=== PATIENT | female | born 1960 | race Caucasian/White ===

== ENCOUNTER 2016-11-03 20:45 | Emergency (ER) | payer OTHER ==
[2016-11-03 21:16] VITALS: BP 155/73; PULSE 82; TEMP 98.1; BMI 66.0
--- NOTE | 2016-11-03 21:21 | PDOC ---
History of Present Illness - General History Source: Patient Exam Limitations: No Limitations <Sue Trveino - Last Filed: 11/03/16 21:36> - General History Source: Patient Exam Limitations: No Limitations <Dmitry Centeon I - Last Filed: 11/03/16 22:00> - General Chief Complaint: Pain, Acute Stated Complaint: RIGHT UPPER CHEST PAIN SINCE YESTERDAY Time Seen by Provider: 11/03/16 20:54 - History of Present Illness Initial Comments: 11/03/16 21:35 The patient is a 56 year old female, with significant past medical history of a double mastectomy (10 years ago), CAD s/p stents, HLD, HTN, morbid obesity, DM, and anxiety, who presents today complaining of 1 day of chest pain. The patient states that she felt like there was a pop in her chest yesterday afternoon and has been feeling pain ever since. She states that the pain radiates to the back is exacerbated upon movements of the arms, and coughing. Denies any trauma. Denies fever, chills, nausea, vomiting. Allergies: amoxicillin, epinephrine, erythromycin, ofloxacin, trimethobenzamide ROS General: No fevers or chills, no weakness, no weight loss HEENT: No change in vision. No sore throat,. No ear pain CardioVascular: Yes: chest pain. No shortness of breath Respiratory: Yes: cough. No wheezing. Gastrointestinal: no nausea, vomiting, diarrhea or constipation, No rectal bleeding Genitourinary: No dysuria, hematuria, or frequency Musculoskeletal: No joint or muscle pain or swelling Neurologic: No headache, vertigo, dizziness or loss of consciousness Psychiatric: nor depression Skin: No rashes or easy bruising Endocrine: no increased thirst or abnormal weight change Allergic: no skin or latex allergy All other systems reviewed and normal Adult Exam: General: Well-nourished well-developed individual, no acute distress HEENT: Throat: Normal, tonsils normal, no erythema or exudate Neck: Supple, no meningeal signs, no lymphadenopathy Eyes::Pupils equal reactive and round, extraocular motion intact Chest: The pain is reproducible upon palpation of the lower right chest area. Pain localizes to the area of her mastectomy scar.There is palpable scar tissue in the area that is tender. The ribs are also tender. No ecchymosis, erythema or increased warmth to the area. There is decreased range of motion of her arm secondary to pain when she is using the muscles overlying the area. Cardiac: S1-S2 normal, regular rate and rhythm, no murmurs rubs or gallops Respiratory: Lungs clear to auscultation bilateral Extremities: Warm, dry, no cyanosis, clubbing, or edema Skin: No rashes Neuro: Alert and oriented x3, nonfocal exam, grossly intact, normal gait Psych: Normal mood and affect (Alia Trevinoica) 11/03/16 21:54 A portion of this note was documented by scribe services under my direction. I have reviewed the details of the note, within reason, and agree with the documentation. The case summary and management plan written by me. Assessment and plan: This is a 56-year-old female who comes in complaining of right-sided chest wall pain secondary to feeling a pop in the area of the pain. Patient said she wasn't doing anything unusual, no unusual physical activity. Patient said she has been coughing a lot and thinks she may have been coughing. Patient denies any upper respiratory tract symptoms other than the coughing. On exam pain is localized to the mastectomy scar and there is palpable tenderness of the scar tissue in that area. A chest x-ray was done says she did give me the history of coughing make sure there was no underlying rib fracture. Chest x-ray was negative for any acute fractures or chest pathology Patient given Toradol with improvement in her symptoms Patient given prescription for naproxen, and a sling. She also was given 10 Percocets that she can take at night if she is having a hard time sleeping. Patient discharged home will follow-up with her primary care doctor. ( Dmitry Centeno I) Past History <Sue Trevino - Last Filed: 11/03/16 21:36> - Past Medical History Cancer: Yes (BILATERAL BREAST CA) Cardiac Disorders: Yes (CARDIAC STENTS) Diabetes: Yes HTN: Yes Hypercholesterolemia: Yes Psychiatric Problems: Yes (ANXIETY) Thyroid Disease: Yes (HYPO) - Surgical History Abdominal Surgery: Yes (HYSTERECTOMY) Cardiac Surgery: Yes (CARDIAC STENTS) - Psycho/Social/Smoking Cessation Hx Anxiety: Yes Suicidal Ideation: No Smoking Status: Yes Smoking History: Current every day smoker Have you smoked in the past 12 months: Yes Number of Cigarettes Smoked Daily: 20 Information on smoking cessation initiated: Yes 'Breaking Loose' booklet given: 11/18/14 Hx Alcohol Use: No Drug/Substance Use Hx: No Substance Use Type: None <Dmitry Centeno I - Last Filed: 11/03/16 22:00> - Past Medical History Allergies/Adverse Reactions: Allergies Allergy/AdvReac Type Severity Reaction Status Date / Time amoxicillin [Amoxicillin] Allergy Hives Verified 12/10/15 16:34 epinephrine Allergy Difficulty Verified 12/10/15 16:34 Breathing erythromycin base Allergy Hives Verified 12/10/15 16:34 [Erythromycin Base] ofloxacin [From Floxin] Allergy Hives Verified 12/10/15 16:34 trimethobenzamide HCl Allergy Swelling Verified 12/10/15 16:34 [From Tigan] Home Medications: Ambulatory Orders Alprazolam [Xanax] 0.5 mg PO HS 08/10/12 Clopidogrel Bisulfate [Plavix -] 75 mg PO DAILY 08/10/12 Nebivolol HCl [Bystolic] 5 mg PO DAILY 08/10/12 Bupropion HCl [Wellbutrin Xl -] 300 mg PO HS 06/13/13 Escitalopram Oxalate [Lexapro -] 30 mg PO HS 06/13/13 Levothyroxine [Synthroid -] 100 mcg PO DAILY 06/13/13 Insulin Aspart Prot/Insuln Asp [Novolog Mix 70-30 Flexpen Syrn] 50 unit SQ BID 11/18/14 Oxycodone HCl/Acetaminophen [Endocet 5-325 Tablet] 2 each PO DAILY PRN 11/18/14 Atorvastatin Ca [Lipitor] 40 mg PO HS 11/03/16 Naproxen [Naprosyn -] 500 mg PO BID #14 tablet 11/03/16 Oxycodone HCl/Acetaminophen [Percocet 5-325 mg Tablet] 1 tab PO Q6H #10 tablet MDD 4 11/03/16 - Vital Signs Last Vital Signs Temp Pulse Resp BP Pulse Ox 98.1 F 82 18 155/73 100 11/03/16 20:50 11/03/16 20:50 11/03/16 20:50 11/03/16 20:50 11/03/16 20:50 - ADDITIONAL ORDERS Additional order review: Laboratory Results 11/03/16 21:20 Urine Color Yellow Urine Appearance Clear Urine pH 5.5 Ur Specific [place] >= 1.030 H Urine Protein Negative Urine Glucose (UA) Trace Urine Ketones Trace Urine Blood Negative Urine Nitrite Negative Urine Bilirubin Negative Urine Urobilinogen 0.2 e.u/dl Ur Leukocyte Esterase Negative - RADIOLOGY Radiology Studies Ordered: Category Date Time Status CHEST PA & LAT [RAD] Stat Radiology 11/03/16 21:26 Ordered RIBS RIGHT SIDE [RAD] Stat Radiology 11/03/16 21:26 Ordered - Medications Given in the ED: ED Medications Discontinued Medications Generic Name Dose Route Start Last Admin Trade Name Freq PRN Reason Stop Dose Admin Ketorolac Tromethamine 60 mg 11/03/16 21:26 11/03/16 21:32 Toradol Injection - IM 11/03/16 21:27 60 mg ONCE ONE Administration *DC/Admit/Observation/Transfer <Sue Trevino - Last Filed: 11/03/16 21:36> - Discharge Dispostion Admit: No <Dmitry Centeno I - Last Filed: 11/03/16 22:00> Diagnosis at time of Disposition: Right-sided chest wall pain - Discharge Dispostion Disposition: HOME Condition at time of disposition: Good - Patient Instructions Additional Instructions: For the pain during the day take naproxen 1 tablet twice a day with food don't take on an empty stomach. At nighttime if you're having a hard time sleeping because of the pain you can take Percocet one tablet as often as every 6 hours. The Percocet will make you constipated and drowsy so try to limit it to the nighttime hours Return to the emergency department immediately with ANY new, persistent or worsening symptoms. Continue any medications as previously prescribed by your physician. You should follow up with your primary doctor as soon as possible regarding today's emergency department visit. . Please make sure your doctor reviews the results of your emergency evaluation. Thank you for coming to the Emergency Department today for your care. It was a pleasure to see you today. Please note that your evaluation is INCOMPLETE until you follow-up with your doctor. - Attestations Scribe Attestion: 11/03/16 21:35 Documentation prepared by KIRTI Freedman, acting as senior medical director for Dmitry Centeno MD. (Lexio,Sue)
[2016-11-03] MEDS ORDERED: KETOROLAC TROMETHAMINE 60 MG/2 ML VIAL IM ONE (21:26)
[2016-11-03] MEDS ORDERED: KETOROLAC TROMETHAMINE 60 MG/2 ML VIAL ONE (21:29)
[2016-11-03 21:31] LABS: PH,URINE 5.5 (4.5-8); URINE APPEARANCE Clear; URINE BILIRUBIN Negative (NEGATIVE); URINE BLOOD Negative (NEGATIVE); URINE COLOR YELLOW; URINE GLUCOSE (UA) Trace (NEGATIVE); URINE KETONE Trace (NEGATIVE); URINE LEUK ESTERASE Negative (NEGATIVE); URINE NITRITE Negative (NEGATIVE); URINE PROTEIN Negative (NEGATIVE); URINE UROBILINOGEN 0.2 E.U/dl (0.2-1.0)
--- NOTE | 2016-11-04 12:53 | EKG ---
Test Reason : Blood Pressure : / mmHG Vent. Rate : 081 BPM Atrial Rate : 081 BPM P-R Int : 168 ms QRS Dur : 088 ms QT Int : 358 ms P-R-T Axes : 067 032 058 degrees QTc Int : 415 ms NORMAL SINUS RHYTHM POSSIBLE LEFT ATRIAL ENLARGEMENT NO PREVIOUS ECGS AVAILABLE Confirmed by MD CHON, ADAM ([id number]) on 11/04/2016 12:52:58 PM Referred By: MICHAEL Confirmed By:ADAM GIVENS MD
== END 2016-11-03 22:04 | disposition home or self-care (01) ==
LOC: FER 20:45
PROC: 3E0233Z Introduction of Anti-inflammatory into Muscle, Percutaneous Approach (ICD-10-PCS; principal; 2016-11-03)
DX: R07.89 Other chest pain (principal); Z95.5 Presence of coronary angioplasty implant and graft; I25.10 Atherosclerotic heart disease of native coronary artery without angina pectoris; E11.9 Type 2 diabetes mellitus without complications; F41.9 Anxiety disorder, unspecified; I10 Essential (primary) hypertension; F17.210 Nicotine dependence, cigarettes, uncomplicated; Z85.3 Personal history of malignant neoplasm of breast
CPT/HCPCS: 71020-TC; 71101-TC-RT; 81003; 93005; 96372; 99282-25

== ENCOUNTER 2017-07-30 22:35 | Emergency (ER) | payer OTHER ==
[2017-07-30 22:40] VITALS: BP 128/63; PULSE 90; TEMP 97.9; BMI 40.3
[2017-07-30] MEDS ORDERED: AMOX TR/POT CLAV 875MG/125MG TABLETS (FP) PO ONE (22:55)
[2017-07-30] MEDS ORDERED: AMOX TR/POT CLAV 875MG/125MG TABLETS (FP) ONE ×2 (22:58→23:41)
[2017-07-30] MEDS ORDERED: DIPHTH,PERTUSS(ACELL),TET 0.5 ML DISP.SYRIN IM ONE (22:59)
--- NOTE | 2017-07-30 23:07 | PDOC ---
History of Present Illness - General Chief Complaint: Bite Stated Complaint: S/P CAT BITE TO L 2ND DIGIT Time Seen by Provider: 07/30/17 22:42 - History of Present Illness Initial Comments: 07/30/17 23:07 56 F with h/o CAD s/p stents, HLD, HTN, morbid obesity, DM, presenting to ER with pain and swelling to L 2nd digit after being bitten by a cat 3 days ago. Pt states that [place] the [place] when it became startled and bit her on the finger. She states that it only bit her once. The cat is owned by someone she is familiar with at the park and pt reports that it has received all its vaccinations. She does not believe the cat was exhibiting any abnormal behavior. Pt denies F/C. Denies any injury anywhere else. Pt reports allergy to penicillin in the past but states that she only had mild hives as a child. Past History - Past Medical History Allergies/Adverse Reactions: Allergies Allergy/AdvReac Type Severity Reaction Status Date / Time amoxicillin [Amoxicillin] Allergy Hives Verified 12/10/15 16:34 epinephrine Allergy Difficulty Verified 12/10/15 16:34 Breathing erythromycin base Allergy Hives Verified 12/10/15 16:34 [Erythromycin Base] ofloxacin [From Floxin] Allergy Hives Verified 12/10/15 16:34 trimethobenzamide HCl Allergy Swelling Verified 12/10/15 16:34 [From Tigan] Home Medications: Ambulatory Orders Alprazolam [Xanax] 0.5 mg PO HS 08/10/12 Clopidogrel Bisulfate [Plavix -] 75 mg PO DAILY 08/10/12 Nebivolol HCl [Bystolic] 5 mg PO DAILY 08/10/12 Bupropion HCl [Wellbutrin Xl -] 300 mg PO HS 06/13/13 Escitalopram Oxalate [Lexapro -] 30 mg PO HS 06/13/13 Levothyroxine [Synthroid -] 100 mcg PO DAILY 06/13/13 Insulin Aspart Prot/Insuln Asp [Novolog Mix 70-30 Flexpen Syrn] 50 unit SQ BID 11/18/14 Oxycodone HCl/Acetaminophen [Endocet 5-325 Tablet] 2 each PO DAILY PRN 11/18/14 Atorvastatin Ca [Lipitor] 40 mg PO HS 11/03/16 Naproxen [Naprosyn -] 500 mg PO BID #14 tablet 11/03/16 Oxycodone HCl/Acetaminophen [Percocet 5-325 mg Tablet] 1 tab PO Q6H #10 tablet MDD 4 11/03/16 Amoxicillin/Potassium Clav [Augmentin 875-125 Tablet] 1 each PO BID #14 tablet 07/30/17 Cancer: Yes (BILATERAL BREAST CA) Cardiac Disorders: Yes (CARDIAC STENTS) COPD: No Diabetes: Yes HTN: Yes Hypercholesterolemia: Yes Psychiatric Problems: Yes (ANXIETY) Thyroid Disease: Yes (HYPO) - Surgical History Abdominal Surgery: Yes (HYSTERECTOMY) Cardiac Surgery: Yes (CARDIAC STENTS) - Suicide/Smoking/Psychosocial Hx Smoking Status: Yes Smoking History: Unknown if ever smoked Have you smoked in the past 12 months: No Number of Cigarettes Smoked Daily: 0 Information on smoking cessation initiated: No 'Breaking Loose' booklet given: 11/18/14 Hx Alcohol Use: No Drug/Substance Use Hx: No Substance Use Type: None Review of Systems - Review of Systems Comments:: 07/30/17 23:15 "GENERAL/CONSTITUTIONAL: No fever or chills. No weakness. HEAD, EYES, EARS, NOSE AND THROAT: No change in vision. No ear pain or discharge. No sore throat. CARDIOVASCULAR: No chest pain or shortness of breath. RESPIRATORY: No cough, wheezing, or hemoptysis. GASTROINTESTINAL: No nausea, vomiting, diarrhea or constipation. GENITOURINARY: No dysuria, frequency, or change in urination. MUSCULOSKELETAL: L 2nd digit swelling and pain SKIN: No rash NEUROLOGIC: No headache, vertigo, loss of consciousness, or change in strength/ sensation. ENDOCRINE: No increased thirst. No abnormal weight change. HEMATOLOGIC/LYMPHATIC: No anemia, easy bleeding, or history of blood clots. ALLERGIC/IMMUNOLOGIC: No hives or skin allergy. " *Physical Exam - Vital Signs Last Vital Signs Temp Pulse Resp BP Pulse Ox 97.9 F 90 14 128/63 98 07/30/17 22:37 07/30/17 22:37 07/30/17 22:37 07/30/17 22:37 07/30/17 22:37 - Physical Exam Comments: 07/30/17 23:15 "GENERAL: Awake, alert, and fully oriented, in no acute distress HEAD: No signs of trauma EYES: PERRLA, EOMI, sclera anicteric, conjunctiva clear ENT: Auricles normal inspection, hearing grossly normal, nares patent, oropharynx clear without exudates. Moist mucosa NECK: Nontender, no stepoffs, Normal ROM, supple, no lymphadenopathy, JVD, or masses LUNGS: Breath sounds equal, clear to auscultation bilaterally. No wheezes, and no crackles HEART: Regular rate and rhythm, normal S1 and S2, no murmurs, rubs or gallops ABDOMEN: Soft, nontender, normoactive bowel sounds. No guarding, no rebound. No masses EXTREMITIES: L 2nd digit with 2 small puncture wounds, now well healed, mild swelling with no erythema, no sausage digit, no pain with passive flexion or extension, no tenderness over flexor or extensor tendons NEUROLOGICAL: Cranial nerves II through XII intact. 5/5 strength and sensation in all extremities, Normal speech, normal gait SKIN: Warm, Dry, normal turgor, no rashes or lesions noted. " ED Treatment Course - Medications Given in the ED: ED Medications Discontinued Medications Generic Name Dose Route Start Last Admin Trade Name Gio PRN Reason Stop Dose Admin Amoxicillin/Clavulanate Potassium 1 tab 07/30/17 22:55 07/30/17 22:57 Augmentin - 875mg Tablet PO 07/30/17 22:56 1 tab ONCE ONE Administration Medical Decision Making - Medical Decision Making 07/30/17 23:16 56 F with cellulitis of L index finger s/p cat bite. Will initiate augmentin. No indication for rabies PEP at this time, as cat is domestic with all vaccinations up to date and bite was provoked. No evidence of deep tissue infection or systemic infection. No signs of tenosynovitis. - Augmentin - Tdap - F/u hand specialist 07/30/17 23:40 Pt given augmentin and watched for 45 minutes without any adverse reaction. Prescription sent to pharmacy. Pt instructed to f/u with hand surgeon. I discussed the physical exam findings, ancillary test results and final diagnoses with the patient. I answered all of the patient's questions. The patient was satisfied with the care received and felt comfortable with the discharge plan and treatment plan. The patient agrees to follow up with the primary care physician within 24-72 hours. *DC/Admit/Observation/Transfer Diagnosis at time of Disposition: Cat bite - Discharge Dispostion Disposition: HOME Condition at time of disposition: Good - Prescriptions Prescriptions: Amoxicillin/Potassium Clav [Augmentin 875-125 Tablet] 1 each PO BID #14 tablet - Referrals Referrals: Edgar Knight MD [Staff Physician] - - Patient Instructions Printed Discharge Instructions: DI for Animal Bites Additional Instructions: Take the antibiotics as prescribed. If you experience worsening pain, swelling, fevers, redness, or any other concerning symptoms, return to the ER immediately. Otherwise, follow up with a hand specialist within 1 week for a re-evaluation. Call the number provided to make an appointment. - Post Discharge Activity - Attestations Physician Attestion: 07/30/17 23:19 I, Dr. Edgar Valadez MD, attest that this document has been prepared under my direction and personally reviewed by me in its entirety. I further attest, that it accurately reflects all work, treatment, procedures and medical decision -making performed by me.
[2017-07-30] MEDS ORDERED: KETOROLAC TROMETHAMINE 15 MG/ML VIAL IM ONE (23:18)
[2017-07-30] MEDS ORDERED: KETOROLAC TROMETHAMINE 15 MG/ML VIAL ONE (23:19)
== END 2017-07-30 23:44 | disposition home or self-care (01) ==
LOC: FER 22:35
PROC: 3E0234Z Introduction of Serum, Toxoid and Vaccine into Muscle, Percutaneous Approach (ICD-10-PCS; principal; 2017-07-30)
PROC: 3E0233Z Introduction of Anti-inflammatory into Muscle, Percutaneous Approach (ICD-10-PCS; 2017-07-30)
DX: S61.251A Open bite of left index finger without damage to nail, initial encounter (principal); W55.01XA Bitten by cat, initial encounter; Y93.89 Activity, other specified; Y92.830 Public park as the place of occurrence of the external cause
CPT/HCPCS: 90715; 99282-25

== ENCOUNTER 2018-10-28 17:53 | Emergency (ER) | payer OTHER ==
--- NOTE | 2018-10-28 17:58 | PDOC ---
Attending Attestation - Resident Resident Name: Yury Ibarra - ED Attending Attestation I have performed the following: I have examined & evaluated the patient, The case was reviewed & discussed with the resident, I agree w/resident's findings & plan, Exceptions are as noted
[2018-10-28 18:05] VITALS: BP 160/84; PULSE 86; TEMP 99.1; BMI 30.1
--- NOTE | 2018-10-28 18:21 | PDOC ---
History of Present Illness - General Chief Complaint: Injury Stated Complaint: FELL ON ICE INJURY RT HAND/WRIST,RT KNEE, LT HI Time Seen by Provider: 10/28/18 17:57 - History of Present Illness Initial Comments: 10/28/18 18:21 Chief complaint: Pain right wrist History of present illness: Patient slipped on the ice several hours [employer], injured her right wrist. Progressive pain and swelling. No distal numbness or tingling. Took one oxycodone after the injury Review of systems: Admits pain to the right shoulder, especially with movement. Pain to the right knee. Bumped her head but has no bruits or headache. No neck injury or neck pain. No visual or focal neurologic symptoms or unsteadiness of gait. No chest abdomen pelvis or spine injury or pain. Past medical history: Insulin-dependent diabetes for many years, controlled well. Coronary artery disease with cardiac stents. Anxiety. Depression. Hypothyroidism. Maintained on Plavix Social history: Denies tobacco alcohol or nonprescription drugs. Fully active and without disability. Stable home and family Family history: Positive for coronary artery disease and diabetes Physical exam: Alert and oriented well-developed well-nourished moderate distress due to pain in the right wrist and shoulder Afebrile, vital signs stable Head atraumatic. There is no evidence of contusion, hematoma, abrasion, laceration. PERRLA 3 mm, fundi benign with sharp disc margins and good central venous pulsations. ENT clear Neck without point tenderness or deformity. Full range of motion without pain Chest clear, full breath sounds bilaterally. No rib cage or chest wall deformity or tenderness CV S1 and S2 normal without murmur rub or gallop pulses full and symmetric no JVD or edema no bruits Abdomen soft nontender without mass or organomegaly. Nondistended. Bowel sounds normal. No CVAT Spine and pelvis without deformity or tenderness Neurological C2 to 12 intact. Strength full and symmetric. No focal sensory or motor deficits. Gait stable and unimpaired. Cerebellum intact Extremities: Right wrist with moderate swelling, tenderness over the distal radius, and mild deformity. Suggestive of wrist fracture Right shoulder: Limited range of motion 90 with pain. No deformity, swelling, erythema, heat, or point tenderness. Distal pulses full. No distal sensory or motor deficit deficits Right knee: Mild pain with extreme front flexion. No swelling, effusion, deformity, or ligamentous stress tenderness or laxity. Stool pulses full. No distal sensory or motor deficits. Impression: Probable right wrist fracture. Possible right humerus fracture. Minor knee strain. Probably no significant head injury but because of Plavix, this is a consideration Plan: X-rays of the right wrist and shoulder. Brain CT to rule out bleed. Symptomatic treatment and follow-up depending on results. Past History - Past Medical History Allergies/Adverse Reactions: Allergies Allergy/AdvReac Type Severity Reaction Status Date / Time amoxicillin [Amoxicillin] Allergy Hives Verified 10/28/18 17:57 epinephrine Allergy Difficulty Verified 10/28/18 17:57 Breathing erythromycin base Allergy Hives Verified 10/28/18 17:57 [Erythromycin Base] ofloxacin [From Floxin] Allergy Hives Verified 10/28/18 17:57 trimethobenzamide HCl Allergy Swelling Verified 10/28/18 17:57 [From Tigan] Home Medications: Ambulatory Orders Alprazolam [Xanax] 0.5 mg PO HS 08/10/12 Clopidogrel Bisulfate [Plavix -] 75 mg PO DAILY 08/10/12 Nebivolol HCl [Bystolic] 5 mg PO DAILY 08/10/12 Bupropion HCl [Wellbutrin Xl -] 300 mg PO HS 06/13/13 Escitalopram Oxalate [Lexapro -] 30 mg PO HS 06/13/13 Levothyroxine [Synthroid -] 75 mcg PO DAILY 06/13/13 Atorvastatin Ca [Lipitor] 80 mg PO HS 11/03/16 Cancer: Yes (BILATERAL BREAST CA) Cardiac Disorders: Yes (CARDIAC STENTS) COPD: No Diabetes: Yes HTN: Yes Hypercholesterolemia: Yes Psychiatric Problems: Yes (ANXIETY) Thyroid Disease: Yes (HYPO) - Surgical History Abdominal Surgery: Yes (HYSTERECTOMY) Cardiac Surgery: Yes (CARDIAC STENTS) - Suicide/Smoking/Psychosocial Hx Smoking Status: Yes Smoking History: Current every day smoker Have you smoked in the past 12 months: No Number of Cigarettes Smoked Daily: 20 Information on smoking cessation initiated: No 'Breaking Loose' booklet given: 11/18/14 Hx Alcohol Use: No Drug/Substance Use Hx: No Substance Use Type: None *Physical Exam - Vital Signs Last Vital Signs Temp Pulse Resp BP Pulse Ox 99.1 F 86 18 160/84 96 10/28/18 17:56 10/28/18 17:56 10/28/18 17:56 10/28/18 17:56 10/28/18 17:56 Moderate Sedation - Procedure Monitoring Vital Signs: Procedure Monitoring Vital Signs Temperature 99.1 F 10/28/18 17:56 Pulse Rate 86 10/28/18 17:56 Respiratory Rate 18 10/28/18 17:56 Blood Pressure 160/84 10/28/18 17:56 O2 Sat by Pulse Oximetry (%) 96 10/28/18 17:56 ED Treatment Course - RADIOLOGY Radiology Studies Ordered: Category Date Time Status SHOULDER-RIGHT [RAD] Stat Radiology 10/28/18 18:03 Ordered WRIST- RIGHT [RAD] Stat Radiology 10/28/18 18:02 Ordered - Medications Given in the ED: ED Medications Discontinued Medications Generic Name Dose Route Start Last Admin Trade Name Freq PRN Reason Stop Dose Admin Oxycodone/Acetaminophen 1 combo 10/28/18 18:03 10/28/18 18:11 Percocet 5/325 - PO 10/28/18 18:04 1 combo ONCE ONE Administration *DC/Admit/Observation/Transfer - Discharge Dispostion Condition at time of disposition: Stable - Referrals - Patient Instructions - Post Discharge Activity
--- NOTE | 2018-10-28 19:35 | PDOC ---
*Physical Exam - Vital Signs Last Vital Signs Temp Pulse Resp BP Pulse Ox 99.1 F 86 18 160/84 96 10/28/18 17:56 10/28/18 17:56 10/28/18 17:56 10/28/18 17:56 10/28/18 17:56 ED Treatment Course - Medications Given in the ED: ED Medications Discontinued Medications Generic Name Dose Route Start Last Admin Trade Name Freq PRN Reason Stop Dose Admin Oxycodone/Acetaminophen 1 combo 10/28/18 18:03 10/28/18 18:11 Percocet 5/325 - PO 10/28/18 18:04 1 combo ONCE ONE Administration Progress Note - Progress Note Progress Note: Care of this patient was transferred to me from Dr. Whitney at 1900 hrs. Is a 58-year-old female who slipped and fell on the ice. Patient has x-rays pending and a CAT scan of her head pending 19:30 Patient's shoulder x-ray negative for any acute pathology Wrist patient's wrist x-ray negative for any acute pathology However given the degree of tenderness in her wrist patient put in a splint and well follow-up with a orthopedist. Patient given referral to orthopedist *DC/Admit/Observation/Transfer Diagnosis at time of Disposition: Sprain of wrist, right Qualifiers: Encounter type: initial encounter Qualified Code(s): S63.501A - Unspecified sprain of right wrist, initial encounter Right shoulder strain Qualifiers: Encounter type: initial encounter Qualified Code(s): S46.911A - Strain of unspecified muscle, fascia and tendon at shoulder and upper arm level, right arm , initial encounter - Discharge Dispostion Disposition: HOME Condition at time of disposition: Stable Decision to Admit order: No - Referrals Referrals: Edgar Knight MD [Staff Physician] - - Patient Instructions Additional Instructions: Tylenol or Motrin as needed for the pain Wear the splint as needed for comfort. Follow-up with Dr. Knight if you need an orthopedist to follow-up with. Return to the emergency department immediately with ANY new, persistent or worsening symptoms. Continue any medications as previously prescribed by your physician. You should follow up with your primary doctor as soon as possible regarding today's emergency department visit. . Please make sure your doctor reviews the results of your emergency evaluation. Thank you for coming to the Emergency Department today for your care. It was a pleasure to see you today. Please note that your evaluation is INCOMPLETE until you follow-up with your doctor. - Post Discharge Activity
== END 2018-10-28 19:41 | disposition home or self-care (01) ==
LOC: FER 17:53
PROC: 2W3CX1Z Immobilization of Right Lower Arm using Splint (ICD-10-PCS; principal; 2018-10-28)
DX: S46.911A Strain of unspecified muscle, fascia and tendon at shoulder and upper arm level, right arm, initial encounter (principal); S63.501A Unspecified sprain of right wrist, initial encounter; W00.0XXA Fall on same level due to ice and snow, initial encounter; Y93.89 Activity, other specified; Y92.89 Other specified places as the place of occurrence of the external cause
CPT/HCPCS: 70450-TC; 73030-TC-RT-FY; 73110-TC-RT-FY; 73560-TC-RT-FY; 99282-25